=== PATIENT | male | born 1990 | race Two or more races ===

== ENCOUNTER 2025-06-21 13:36 | Emergency (ER) | payer BC ==
[~2025-06-21] VITALS: Ht 185.4 cm; Wt 111.1 kg
[2025-06-21 13:58] LABS: PLATELET COUNT (AUTO) 236 K/uL (150-450); RED BLOOD CELL COUNT(AUTO) 5.20 MIL/uL (4.5-6.0); RED CELL DISTRIBUTION WIDTH 14.2 % (11.5-15.0); WHITE BLOOD COUNT (AUTO) 8.5 K/uL (4.3-11.0)
[2025-06-21] MEDS: IV NS 0.9% 1,000 ML BAG IV ONE (13:58)
[2025-06-21 14:09] LABS: CALCIUM, SERUM 8.8 mg/dL (8.5-10.1); CREATININE 1.2 mg/dL (0.6-1.3); SODIUM SERUM 134 mmol/L (136-145); UREA NITROGEN, BLOOD 16 mg/dL (7-18)
[2025-06-21 14:14] LABS: ASPARTATE AMINOTRANSFERASE 26.0 U/L (15-37); TOTAL PROTEIN, SERUM 7.1 g/dL (6.4-8.2)
[2025-06-21] MEDS ORDERED: ACETAMINOPHEN ES 500 MG TABLET ONE (14:15)
[2025-06-21] MEDS ORDERED: dexaMETHasone SOD PHOSPHATE 4 MG/ML VIAL ONE ×2 (14:15)
[2025-06-21] MEDS ORDERED: ONDANSETRON HCL/PF 4 MG/2 ML VIAL ONE (14:15)
[2025-06-21] MEDS ORDERED: METOCLOPRAMIDE HCL 10 MG/2 ML VIAL ONE (14:15)
[2025-06-21] MEDS: dexaMETHasone SOD PHOSPHATE 4 MG/ML VIAL IV ONE (14:38)
[2025-06-21] MEDS: METOCLOPRAMIDE HCL 10 MG/2 ML VIAL IV ONE (14:38)
[2025-06-21] MEDS: ONDANSETRON HCL/PF 4 MG/2 ML VIAL IVP ONE (14:38)
[2025-06-21] MEDS: ACETAMINOPHEN ES 500 MG TABLET PO ONE (14:39)
[2025-06-21] MEDS ORDERED: DIPH25CA83 PO (16:04)
[2025-06-21] MEDS ORDERED: METO-295 PO (16:04)
[2025-06-21 16:24] VITALS: BP 109/71; TEMP 98.2; O2SAT 98
== END 2025-06-21 16:25 | disposition home or self-care (01) ==
LOC: ER 13:45
DX: G89.29 Other chronic pain (principal); M50.30 Other cervical disc degeneration, unspecified cervical region; M54.9 Dorsalgia, unspecified; R06.02 Shortness of breath; D17.9 Benign lipomatous neoplasm, unspecified; R07.1 Chest pain on breathing; R11.0 Nausea; R20.0 Anesthesia of skin; R42 Dizziness and giddiness; R51.9 Headache, unspecified; Z91.010 Allergy to peanuts
CPT/HCPCS: 99285; 96374; 96375; 70450; 71045; 96361; 93005; 85025; 80048; 83690; 80076; 36415; 84484; J1100 ×2; J1200; J2765; J2405; J7030